=== PATIENT | female | born 1945 | race Caucasian/White ===

== ENCOUNTER 2020-08-01 11:14 | Outpatient (CLI) | payer MEDICARE ==
[~2020-08-01] VITALS: Ht 165.1 cm; Wt 103.8 kg
[2020-08-01] MEDS ORDERED: NORCO 325 MG-7.1 TAB PO (13:02)
[2020-08-01] MEDS ORDERED: LASIX 80MG TABL80 MG PO (13:02)
[2020-08-01] MEDS ORDERED: K-DUR20 MEQ PO (13:02)
[2020-08-01] MEDS ORDERED: PRINIVIL20 MG PO (13:02)
[2020-08-01] MEDS ORDERED: VITAMIN D31000 I1 PO (13:03)
[2020-08-01] MEDS ORDERED: VITAMIN C500 MG PO (13:03)
[2020-08-01] MEDS ORDERED: ROCEPHIN 2GM VIAL21 IJ (13:04)
[2020-08-01] MEDS ORDERED: ONE-A-DAY ESSE1 EACH PO (13:04)
[2020-08-01 13:05] VITALS: BP 84/52; PULSE 81; TEMP 98.1
--- NOTE | 2020-08-01 13:30 | NUR ---
Pt assisted out to daughter's car by wheelchair following PICC placement. Dressing over PICC site remains clean, dry and intact. Upper arm wrapped with HARLEY wrap. She was assisted to restroom by wheelchair prior to departure.
== END 2020-08-01 14:55 | disposition home or self-care (01) ==
LOC: EUO 11:14
DX: L76.34 Postprocedural seroma of skin and subcutaneous tissue following other procedure (principal)
CPT/HCPCS: C1751

== ENCOUNTER 2020-08-15 13:56 | Inpatient (IN) | payer MEDICARE ==
[~2020-08-15] VITALS: Ht 165.2 cm; Wt 95.6 kg
[~2020-08-15 13:56] MED LIST: K-DUR20 MEQ PO; LASIX 80MG TABL80 MG PO; NORCO 325 MG-7.1 TAB PO; ONE-A-DAY ESSE1 EACH PO; PRINIVIL20 MG PO; ROCEPHIN 2GM VIAL21 IJ; VITAMIN C500 MG PO; VITAMIN D31000 I1 PO
[2020-08-22] VITALS (9 sets, daily range): BP systolic 104–152; BP diastolic 47–77; PULSE 88–100; TEMP 97.4–98.4
--- NOTE | 2020-08-22 09:39 | NUR ---
Patient admitted to room 2 ambulatory with use of walker. Alert and oriented x3. Voices understanding of surgery and consent signed. Noted ABD dressing on the right hip. States that she is changing the dressing 2-3 times per day. Noted to have PICC line in the left upper arm. Dressing was changed on 08/21/20. Site is free of redness or swelling. Cap changed. PICC line accessed and good blood return noted. Labs drawn as ordered and IV fluids of LR infusing. Daughter in room. Siderails up x2 and call light in reach.
[2020-08-22 10:56] LABS: CALCIUM 9.2 mg/dL (8.4-10.2); CREATININE, serum 0.68 (0.52-1.25); POTASSIUM 3.9 mmol/L (3.4-5.0)
[2020-08-22] MEDS ORDERED: ASPIRIN 32325 MG/TAB PO (16:37)
[2020-08-22] MEDS ORDERED: CELEBREX 200MG200 MG PO (16:38)
[2020-08-22] MEDS ORDERED: ROXICODONE 55 MG/TAB PO (16:39)
--- NOTE | 2020-08-22 18:30 | NUR ---
Patient has been doing well since getting back from surgery. SHe is alert and oriented. She got back at 1615. She stated feeling drunk, explained its from the anesthesia she got in surgery. Rating pain at 2 on a 0-10 scale to right hip. Discussed hip precautions, she verbalized understanding. Dressing to right hip is C/D/I. No drainage, bruising or reddness noted to right hip. PICC line to left upper arm. SHe stated her PICC line care is done at [facility] where she gets her antibiotics. CMS intact to right leg. She had some nausea when she first arrived to the floor from surgery, zofran given. She is tolerating fruit and jellow since. NO other changes at this time. Call light within reach. Turned on bed alarm incase patient forgets to call to get up.
--- NOTE | 2020-08-22 20:30 | NUR ---
Pt. sitting up in bed. Pt. is A&OX3, assessment complete. PICC to rt. upper arm patent. Dressing to rt. hip CDI. Pt. reports pain to rt. hip at a 3 on pain scale. Pt. denies further needs, call light within reach.
[2020-08-23] VITALS (10 sets, daily range): BP systolic 91–111; BP diastolic 32–86; PULSE 71–99; TEMP 97.1–98.2
--- NOTE | 2020-08-23 11:43 | NUR ---
Unit of blood started at this time. S/sx's of transfusion reaction reviewed with patient. This nurse will remain at bedside for first fifteen minutes of transfusion.
--- NOTE | 2020-08-23 16:23 | NUR ---
Coal Washer met with patient to discuss discharge planning. Patient lives alone in [place], [place] and sees Dr. Parisi for primary care. Patient obtains medications from [facility] in [place] with no difficulties. Patient has a front wheeled walker, cane, and stool riser at home. Patient reports she is normally independent with ADLS. Patient states she believes her daughter, Aye (ph#[phone]) is her DPOA-HC but there is no copy in EMR. Patient advised she lives alone and does not have anyone that can stay with her upon discharge. Patient would like referrals sent to [facility] (fax#[phone]) and [facility]. SW faxed referrals. LISA also left a message for LISA Fisher at [facility]. SW contacted patient's daughter, Aye who agrees with plan for rehab placement. Discharge Plan: Awaiting screens from [facility] and [facility].
--- NOTE | 2020-08-23 18:37 | NUR ---
Pt had uneventful day. Walked in the hallway without any pain. BP continues to be on the lower side, patient asymptomatic. Tolerated blood transfusion without issues. No needs at this time. Call light within reach.
--- NOTE | 2020-08-23 20:10 | NUR ---
Pt. sitting up in bed. Pt. is A&Ox3, assessment complete. PICC to lt. upper arm patent. Pt. reports mild pain to rt. hip, gave Tylenol per orders. Pt. ambulated in the muñoz with standby assist, gait belt and walker. Pt. assisted back to bed and repositioned for comfort. Pt. denies further needs, call light within reach.
[2020-08-24 00:44] VITALS: BP 119/55; PULSE 70; TEMP 97.9
[2020-08-24 04:26] VITALS: BP 131/59; PULSE 77; TEMP 97.8
[2020-08-24 06:46] LABS: HEMOGLOBIN 8.6 g/dl (12.5-16.0)
[2020-08-24 08:28] VITALS: BP 136/49; PULSE 73; TEMP 97.6
--- NOTE | 2020-08-24 11:00 | NUR ---
Patient has been doing well with ambulation. She needs a few reminders to stick to TTWB. She is doing well with following hip precautions. Occlusive dressing to right hip is intact. Denies pain and nausea. Reminder to do ankle pumps. JULIAN hose removed due to being tight. She has some at home that fit her correctly. She is willing to wear the SCD's though. She is worried about not getting a placement in [place]. No other changes at this time. Call light within reach.
[2020-08-24 11:42] VITALS: BP 104/43; PULSE 75; TEMP 97.5
[2020-08-24 15:39] VITALS: BP 131/41; PULSE 80; TEMP 97.6
--- NOTE | 2020-08-24 18:00 | NUR ---
Patient was having some nausea this afternoon. We tried zofran but it did not work. She felt like it was the pulled pork she ate at lunch upset her stomach. She wanted tums for some heartburn. Tums ordered and given. She stated it seems to be helping some. She orered broth and sprite for supper. She denies nausea. She has been up several times to the bathroom. She has been resting comfortably. No other changes at this time. Call light within reach.
[2020-08-24 19:47] VITALS: BP 133/50; PULSE 83; TEMP 98.3
--- NOTE | 2020-08-24 20:30 | NUR ---
Pt. sitting up in bed at this time. Pt. is A&OX3, assessment complete. PICC to lt. arm patent. Pt. reports feeling vey nauseated. Will give nausea meds per orders. Pt. denies pain or other needs, call light within reach.
[2020-08-25] VITALS: BP 139/61; PULSE 82; TEMP 98.2
[2020-08-25 04:32] VITALS: BP 133/52; PULSE 79; TEMP 98.3
[2020-08-25 05:58] LABS: HEMATOCRIT 29.1 % (37.0-47.0); HEMOGLOBIN 9.2 g/dl (12.5-16.0)
--- NOTE | 2020-08-25 07:00 | NUR ---
ORTHO PA AT BEDSIDE, SEE ORDERS.
--- NOTE | 2020-08-25 08:00 | NUR ---
PATIENT IS A&O. VSS. C/O NAUSEA & LOTS OF GAS. GAVE PRN PHEN TAB WITH AM MEDS. PATIENT DID NOT EAT MUCH OF HER BREAKFAST THIS AM. PASSING LOTS OF FLATUS & BELCHING. HEAD TO TOE ASSESSMENT WNL. RIGHT HIP DRESSING IS CD&I WITH BULK OCCLUSIVE DRESSING INPLACE. SCD'S & TEDS TO BLE. POSITIVE PEDAL PULSES TO BLE. TTWB TO RLE. PT/OT CONSULTED. PATIENT WANTS TO STAY IN BED THIS AM TILL HER NAUSEA SETTLES DOWN. EMESIS BASIN AT BEDSIDE. VANCO INFUSING INTO LEFT PICC. NO OTHER NEEDS AT THIS TIME. CALL LIGHT IN REACH.
[2020-08-25 08:07] VITALS: BP 149/57; PULSE 87; TEMP 97.8
--- NOTE | 2020-08-25 08:55 | NUR ---
PATIENT UP IN BATHROOM, REMOVED POST OP RIGHT HIP DRESSING AND APPLIED ABD X2 WITH HIP SPIKE PER ORTHO PA ORDERS. TWO LARGE RIGHT HIP INCISIONS MARINO CROSSING ARE WELL APPROX WITH FAUSTO INTACT. NOTED LARGE AMOUNTS OF POST OP DRAIANGE TO RIGHT HIP THAT DID NOT OOZ THROUGH OCCLUSIVE TAPE. PATIENT NOW RESTING UP IN BEDSIDE CHAIR. NO OTHER NEEDS. CALL LIGHT IN REACH.
--- NOTE | 2020-08-25 09:14 | NUR ---
LISA contacted Lashon at [facility] to follow up on referral. Lashon reports that they did not get the referral. Lashon reports that they will probably be able to accept the patient though. LISA re-faxed the referral to Lashon. LISA met with the patient to update. The patient confirms that she would like to go to [facility] and that her daughter or son will be able to provide transportation. LISA attempted to contact and update the patient's daughter, Aye. LISA left her a voicemail. LISA updated the patient's RN. *Discharge plan: [facility]* [facility]: #[phone] fax#[phone]
--- NOTE | 2020-08-25 09:49 | NUR ---
The patient's daughter, Aye, returned LISA's phone call. LISA provided her with an update. Aye was agreeable to the plan. She states that her brother, John (ph#[phone]), would be able to transport the patient tomorrow, if ready to d/c then. She states she will update John.
[2020-08-25 11:12] VITALS: BP 136/53; PULSE 63; TEMP 98.3
--- NOTE | 2020-08-25 12:18 | NUR ---
First visit from the software intern. No needs right now.
--- NOTE | 2020-08-25 13:29 | NUR ---
Lashon, at [facility], reports that they are able to accept the patient. The accepting physician is Dr. Parisi and the number for the doc-to-doc is [phone]. LISA placed the phone number on the patient's chart. LISA to inform the patient's RN. LISA then met with the patient and her daughter, Aey, to update. They were agreeable to the plan. LISA presented and read the IM form outloud to the patient. The patient verbalized understanding and signed the form. LISA provided her with a copy.
[2020-08-25 15:19] VITALS: BP 105/41; PULSE 85; TEMP 98.2
[2020-08-25 20:05] VITALS: BP 139/44; PULSE 81; TEMP 98
--- NOTE | 2020-08-25 21:15 | NUR ---
PT REPORTS CONTINUED NAUSEA. MEDICATED WITH ORAL PHENERGAN 25MG PO WELL HS MEDS. HAS SINGLE LUMEN PICC TO LT UPPER ARM. IS ALERT AND ORIENTED X4. HAS DRSG TO RIGHT HIP, FAUSTO INTACT. TTWB TO RT FOOT WHEN UP. WILL MONITOR FOR CHANGES.
--- NOTE | 2020-08-26 | NUR ---
DRSG CHANGED TO RT HIP, DRAINAGE NOTED. PT HAS HAD NO EMESIS SINCE TAKING ORAL PHENERGAN.
[2020-08-26 01:10] VITALS: BP 142/50; PULSE 84; TEMP 98.7
[2020-08-26 04:34] VITALS: BP 157/61; PULSE 83; TEMP 98.9
--- NOTE | 2020-08-26 05:20 | NUR ---
LAB WORK OBTAINED FROM LEFT PICC. DENIES NEEDS AT THIS TIME.
--- NOTE | 2020-08-26 07:00 | NUR ---
ORTHO HOB MACHINE OPERATOR ROUNDING, SEE ORDERS.
[2020-08-26 07:15] VITALS: BP 139/63; PULSE 85; TEMP 97.8
[2020-08-26 07:41] LABS: CREATININE, serum 0.75 (0.52-1.25)
--- NOTE | 2020-08-26 08:00 | NUR ---
PATIENT IS A&O AND SITTING UP IN BEDSIDE CHAIR. VSS. RATES PAIN IN RIGHT HIP AT 2-3 ON PAIN SCALE, GAVE SCHEDULED TYLENOL. RIGHT HIP SPIKA IS CD&I. SCD'S CURRENTLY OFF. POSITIVE PEDAL PULSES TO BLE. HEAD TO TOE ASSESSMENT WNL. PT/OT CONSULTED. STILL C/O INTERMITTENT NAUSEA. GAVE PRN PHENERGAN PO BEFORE AM MEDS. NO OTHER NEEDS AT THIS TIME. DISCHARGE TO [facility] PENDING TODAY.
[2020-08-26 11:05] VITALS: BP 128/64; PULSE 74; TEMP 97.8
--- NOTE | 2020-08-26 12:00 | NUR ---
CALLED REGARDING ID CONSULT. NO H&P ON E-CHART OR PHYSICAL CHART. PREVIOUS RTH SURGERY WAS PERFORMED IN ANOTHER FACILITY, NO PREVIOUS SYNOVIAL CULTURES OR BLOOD CULTURES IN E-CHART OR PHYSICAL CHART. ID IS UNABLE TO MAKE RECOMMENDATIONS AT THIS TIME. ATTEMPTED TO CALL ORTHO MARSHMALLOW MACHINE OPERATOR, LEFT MESSAGE.
--- NOTE | 2020-08-26 13:00 | NUR ---
CALLED 'S NURSE, LEFT MESSAGE.
--- NOTE | 2020-08-26 13:15 | NUR ---
ATTEMPTED TO CALL ORTHO AGAIN, NO ANSWER. CALLED AND LEFT MESSAGE WITH OFFICE STAFF DIRECTOR. AWAITING RETURN CALL.
--- NOTE | 2020-08-26 14:00 | NUR ---
ID CALLED BACK, STILL NO H&P OR PREVIOUS CULTURES AVAILABLE NURSING WAS UNABLE TO CONTACT ORTHO YET. SEE ID ORDERS. LOANS OFFICER IS CALLED ACCEPTING FACILITY WHO WONT ACCEPT THIS LATE IN THE DAY. DISCHARGE WILL PENDING TOMORROW. FAMILY CONTACTED
--- NOTE | 2020-08-26 14:34 | NUR ---
ID was consulted this morning for IV antibiotic recs. SWATHI contacted the patient's RN this afternoon with recs. He is recommending IV Rocephin daily for six weeks. LISA notified and faxed the recommendation to Nathaly at [facility]. Eleazar reports that they are able to do the IV Rocephin, but that they would not be able to take the patient today, due to it being too late in the day. LISA updated the patient's RN. LISA contacted and updated the patient's children. John reports that he will still be able to transport the patient tomorrow and a transport time was set for 0930. LISA updated the patient. She is agreeable to the plan. LISA updated the patient's RN and Eleazar at [facility] of the transport time. They were both agreeable to the time.
[2020-08-26 16:36] VITALS: BP 148/57; PULSE 84; TEMP 98.3
[2020-08-26 19:56] VITALS: BP 149/63; PULSE 76; TEMP 98.1
[2020-08-27 04:03] VITALS: BP 146/61; PULSE 70; TEMP 97.6
--- NOTE | 2020-08-27 08:00 | NUR ---
PATIENT IS A&O. VSS. RATES PAIN IN RLE AT 2-3 ON PAIN SCALE. GAVE SCHEDULED TYLENOL & GABAPENTIN WITH AM MEDS. RIGHT HIP SPIKA DRESSING IS CD&I. HEAD TO TOE ASSESSMENT WNL. PATIENT DISCHARGING TODAY AT 0930 TO [facility]. LEFT UPPER ARM PICC CAP CHANGED AND FLUSHED. AIVS NOW AT BEDSIDE TO DO PICC DRESSING CHANGE. PATIENT GETTING DRESSED AND PACKED FOR DISCHARGE.
[2020-08-27 08:16] VITALS: BP 146/61; PULSE 70; TEMP 97.6
--- NOTE | 2020-08-27 09:01 | NUR ---
The patient is to discharge today, 08/27, to [facility]. Transportation is to be by private vehicle at 0930, via the patient's son (John). LISA informed Nathaly at [facility] on the transport time. No additional needs at this time.
--- NOTE | 2020-08-27 09:30 | NUR ---
PATIENT DISCHARGING TO [facility], SEE ORDERS. PATIENT DISCHARGE WITH LEFT UPPER ARM PICC. SENT INFO PACKET WITH SON. CALLED REPORT TO NURSE IN [facility]. PATIENT DRESSED, PACKED AND DISCHARGED.
== END 2020-08-27 09:30 | disposition swing bed (61) | DRG 468 ==
LOC: INPTSU 08-22 09:27 → SURG 08-22 11:00
PROVIDERS: Nurse Anesthetist, Certified Registered; Physician Assistant; ADMIT Orthopaedic Surgery
PROC: 0SPA0JZ Removal of Synthetic Substitute from Right Hip Joint, Acetabular Surface, Open Approach (ICD-10-PCS; 2020-08-22)
PROC: 0SR Lower Joints, Replacement (ICD-10-PCS; principal; 2020-08-22 12:00)
DX: T84.51XA Infection and inflammatory reaction due to internal right hip prosthesis, initial encounter (principal); Y84.8 Other medical procedures as the cause of abnormal reaction of the patient, or of later complication, without mention of misadventure at the time of the procedure; Z20.822 Contact with and (suspected) exposure to COVID-19; E78.5 Hyperlipidemia, unspecified; I10 Essential (primary) hypertension; Z85.3 Personal history of malignant neoplasm of breast
CPT/HCPCS: A9284; C1713; C1776; J0690; J0696; J1100; J2250; J2274; J2405; J2704; J3010; J3260; J3370; J7040; J7050; J7120; P9016

== ENCOUNTER → 2020-12-03 | Outpatient (CLI) | payer MEDICARE ==
[~2020-12-03] MED LIST changes: +ASPIRIN 32325 MG/TAB PO; +CELEBREX 200MG200 MG PO; +ROXICODONE 55 MG/TAB PO
[2020-12-03 14:37] LABS: HEMATOCRIT 39.4 % (37.0-47.0); HEMOGLOBIN 12.7 g/dl (12.5-16.0); MEAN CELL VOLUME 85 fl (80.0-100.0); MEAN CORPUSCULAR HEMOGLOBIN 28 pg (27.0-31.0); MEAN CORPUSCULAR HGB CONC 32 g/dl (33.0-37.0); MEAN PLATELET VOLUME 9.5 fl (7.4-10.4); PLATELET COUNT 266 K/mm3 (130-400); RED BLOOD COUNT 4.62 M/mm3 (4.10-5.30); REDCELL DISTRIBUTION WIDTH-CV 14.4 % (11.5-14.5)
[2020-12-03 14:49] LABS: ALBUMIN 4.2 gm/dL (3.5-5.0); BILIRUBIN,TOTAL 0.6 mg/dL (0.0-1.0); C-REACTIVE PROTEIN 1.2 mg/dL (0.0-0.9); CALCIUM 9.4 mg/dL (8.4-10.2); CREATININE, serum 0.96 (0.52-1.25); POTASSIUM 4.1 mmol/L (3.4-5.0); TOTAL PROTEIN 7.1 gm/dL (6.4-8.2)
[2020-12-03 14:56] LABS: INR 1.1 (0.8-3.0); PROTHROMBIN TIME 12.2 SECONDS (9.7-12.8)
[2020-12-03 15:00] LABS: ERYTHROCYTE SEDIMENTATION RATE 17 mm/hr (0-30)
== END ==
LOC: COL.RAD 12:49 → COL.LAB 12:49 → COL.RAD 13:00
PROVIDERS: Orthopaedic Surgery
DX: M25.551 Pain in right hip (principal); Z96.641 Presence of right artificial hip joint